=== PATIENT | male | born 2000 | race African-American/Black ===

== ENCOUNTER 2025-01-26 05:37 | Inpatient (IN) | payer BC, OTHER ==
[~2025-01-26] VITALS: Ht 188 cm; Wt 125.2 kg
[2025-01-26 05:40] VITALS: O2SAT 98
[2025-01-26 06:46] LABS: HEMATOCRIT. 43.8 % (42.0-52.0); HEMOGLOBIN. 14.2 g/dL (14.0-18.0); MEAN PLATELET VOLUME 8.3 fl (7.4-10.4); PLATELET 296 x1000/uL (130-400); RED BLOOD CELL COUNT 5.09 mill/uL (4.7-6.1); RED CELL DISTRIBUTION WIDTH 14.1 % (11.6-14.6)
[2025-01-26 06:59] LABS: CREATININE 1.6 mg/dL (0.6-1.3); TROPONIN I HIGH SENSITIVITY 15 ng/L (3.0-53)
[2025-01-26 07:00] LABS: UREA NITROGEN BLOOD 14 mg/dL (9-23)
[2025-01-26 07:01] LABS: ASPARTATE AMINOTRANSFERASE 36 IU/L (<34); BILIRUBIN DIRECT 0.2 mg/dL (<=3.0)
[2025-01-26 07:02] LABS: BILIRUBIN TOTAL 0.6 mg/dL (0.1-1.0); PROTEIN TOTAL 7.6 g/dL (6.0-8.3)
[2025-01-26] MEDS ORDERED: DOCUSATE SODIUM 100MG CAPSULE PO PRN (09:30)
[2025-01-26] MEDS ORDERED: ONDANSETRON HCL 4MG/2ML INJ IV PRN (09:30)
[2025-01-26] MEDS ORDERED: GUAIFENESIN 200MG/10ML SUGAR FREE UDC PO PRN (09:30)
[2025-01-26] MEDS ORDERED: ACETAMINOPHEN 650MG/20.3ML UDC GT PRN (09:30)
[2025-01-26] MEDS ORDERED: IPRATROPIUM/ALBUTEROL 0.5-3(2.5)MG/3ML NEB HHN PRN (09:30)
[2025-01-26] MEDS ORDERED: LORAZEPAM 2MG/ML UD SYRINGE IV PRN (09:45)
[2025-01-26] MEDS ORDERED: DEXTROSE 50% WATER 50ML SYRINGE IV PRN (10:30)
[2025-01-26 10:51] LABS: ETHANOL BLOOD < 10 mg/dL (<10)
[2025-01-26 10:55] LABS: TROPONIN I HIGH SENSITIVITY 136 ng/L (3.0-53)
[2025-01-26] MEDS: FOLIC ACID 1 MG, THIAMINE HCL 100 MG, MVI, ADULT NO.1 10 ML in DEXTROSE 5% WATER 1,000 ML IV ONE (12:40)
[2025-01-26] MEDS: THIAMINE HCL 100MG TABLET PO SCH (12:40)
[2025-01-26] MEDS: DEXT 5%/0.9% NACL 1,000 ML IV SCH (12:40)
[2025-01-26] MEDS: BLOOD SUGAR DIAGNOSTIC STRIP TEST SCH (12:40)
[2025-01-26 13:44] LABS: CLARITY URINE CLEAR (CLEAR); COLOR URINE DARK YELLOW (YELLOW); GLUCOSE URINE NEGATIVE (NEGATIVE); PH URINE 5.5 (4.5-8.0); PROTEIN URINE 2+ (NEGATIVE); SPECIFIC GRAVITY URINE 1.028 (1.005-1.030)
[2025-01-26 13:45] LABS: KETONES URINE 1+ (NEGATIVE); LEUKOCYTE ESTERASE URINE NEGATIVE (NEGATIVE); NITRITE URINE NEGATIVE (NEGATIVE); OCCULT BLOOD URINE NEGATIVE (NEGATIVE); UROBILINOGEN URINE 1.0 E.U./dL (0.2-1.0)
[2025-01-26 13:53] LABS: *AMPHETAMINES SCREEN URINE PRESUMPTIVE POSITIVE (NEGATIVE); *BARBITURATES SCREEN URINE NEGATIVE (NEGATIVE); *BENZODIAZEPINES SCREEN URINE PRESUMPTIVE POSITIVE (NEGATIVE); *COCAINE SCREEN URINE NEGATIVE (NEGATIVE); CANNABINOID URINE SCREEN PRESUMPTIVE POSITIVE (NEGATIVE); METHADONE URINE SCREEN NEGATIVE (NEGATIVE); OPIATES URINE SCREEN NEGATIVE (NEGATIVE); PHENCYCLIDINE URINE SCREEN NEGATIVE (NEGATIVE)
[2025-01-26 13:54] LABS: ECSTASY MDMA SCREEN URINE CONF.TEST INDICATED (NEGATIVE)
[2025-01-26 14:13] LABS: SQUAMOUS EPITHELIAL CELL URINE FEW /lpf (RARE/1+); WBC URINE 0-2 /hpf (0-2)
[2025-01-26 14:14] LABS: BACTERIA URINE NONE SEEN; MUCUS URINE 2+ /lpf (NONE/TRACE); RBC URINE 0-2 /hpf (0-2); YEAST URINE NONE SEEN
[2025-01-26 16:33] LABS: TROPONIN I HIGH SENSITIVITY 261 ng/L (3.0-53)
[2025-01-26 17:11] LABS: BAND% 1.0 % (1.0-6.0); LYMPHOCYTES % MANUAL 4.0 % (20.0-50.0); MONOCYTES % MANUAL 3.0 % (2.0-8.0); NEUTROPHILS % MANUAL 92.0 % (45.0-75.0); PLATELET ESTIMATE NORMAL
[2025-01-26] MEDS: PANTOPRAZOLE SODIUM 40 MG/VIAL IV SCH (18:05)
[2025-01-26 20:00] VITALS: BP 112/58; PULSE 60; RESP 18; TEMP 36.3; O2SAT 98
[2025-01-26] MEDS ORDERED: TRAZ-252 MT (21:34)
[2025-01-26] MEDS: TRAZODONE HCL 50MG TABLET PO SCH (22:00)
[2025-01-27] VITALS (7 sets, daily range): BP systolic 111–133; BP diastolic 58–76; PULSE 51–60; RESP 17–20; TEMP 36.2–36.7; O2SAT 95–98
[2025-01-27 06:46] LABS: CREATININE 0.9 mg/dL (0.6-1.3)
[2025-01-27 06:47] LABS: UREA NITROGEN BLOOD 11 mg/dL (9-23)
[2025-01-27 06:53] LABS: BASOPHILS % 0.4 % (0.0-2.0); EOSINOPHILS % 1.4 % (0.0-5.0); HEMATOCRIT. 39.5 % (42.0-52.0); HEMOGLOBIN. 13.2 g/dL (14.0-18.0); LYMPHOCYTES % 21.4 % (20.0-50.0); MEAN PLATELET VOLUME 8.4 fl (7.4-10.4); MONOCYTES % 5.9 % (2.0-8.0); NEUTROPHILS % 70.9 % (40.0-76.0); PLATELET 230 x1000/uL (130-400); RED BLOOD CELL COUNT 4.64 mill/uL (4.7-6.1); RED CELL DISTRIBUTION WIDTH 13.9 % (11.6-14.6); T4 FREE 1.16 ng/dL (0.89-1.76)
[2025-01-27 08:26] LABS: TROPONIN I HIGH SENSITIVITY 223 ng/L (3.0-53)
[2025-01-27] MEDS: FOLIC ACID 1MG TABLET PO SCH (09:15)
[2025-01-27] MEDS: ACETAMINOPHEN 650MG/20.3ML UDC GT PRN (09:17)
[2025-01-27 09:47] LABS: ASPARTATE AMINOTRANSFERASE 24 IU/L (<34)
[2025-01-27 09:48] LABS: BILIRUBIN DIRECT 0.3 mg/dL (<=3.0); BILIRUBIN TOTAL 1.0 mg/dL (0.1-1.0); PROTEIN TOTAL 6.7 g/dL (6.0-8.3)
[2025-01-27] MEDS: GABAPENTIN 100MG CAPSULE PO SCH (13:40)
[2025-01-27] MEDS ORDERED: DICL50TA9 PO (13:43)
[2025-01-27] MEDS: OLANZAPINE 5MG TABLET PO SCH (21:28)
[2025-01-27] MEDS: DICLOFENAC SODIUM 50 MG PO SCH (21:28)
[2025-01-28] VITALS: BP 116/67; PULSE 53; RESP 17; TEMP 33.9; O2SAT 93
[2025-01-28 04:00] VITALS: BP 103/47; PULSE 53; RESP 17; TEMP 36.7; O2SAT 95
[2025-01-28 08:00] VITALS: BP 145/79; PULSE 63; RESP 18; TEMP 36.2; O2SAT 98
[2025-01-28 08:06] LABS: BASOPHILS % 0.5 % (0.0-2.0); EOSINOPHILS % 2.2 % (0.0-5.0); HEMATOCRIT. 39.4 % (42.0-52.0); HEMOGLOBIN. 13.0 g/dL (14.0-18.0); LYMPHOCYTES % 25.8 % (20.0-50.0); MEAN PLATELET VOLUME 8.5 fl (7.4-10.4); MONOCYTES % 7.5 % (2.0-8.0); NEUTROPHILS % 64.0 % (40.0-76.0); PLATELET 232 x1000/uL (130-400); RED BLOOD CELL COUNT 4.71 mill/uL (4.7-6.1); RED CELL DISTRIBUTION WIDTH 13.7 % (11.6-14.6)
[2025-01-28 08:22] LABS: CREATININE 0.8 mg/dL (0.6-1.3); UREA NITROGEN BLOOD 9 mg/dL (9-23)
[2025-01-28] MEDS: LAMOTRIGINE 25MG TABLET PO SCH (09:04)
[2025-01-28 12:00] VITALS: BP 144/74; PULSE 57; RESP 18; TEMP 35.6; O2SAT 98
[2025-01-28] MEDS ORDERED: THIA100T72 PO (12:52)
[2025-01-28] MEDS ORDERED: FOLI-43 PO (12:52)
[2025-01-28] MEDS ORDERED: DICL50TA9 PO (12:52)
[2025-01-28 14:25] VITALS: BP 144/74; PULSE 57; TEMP 96.1
== END 2025-01-28 15:00 | disposition home or self-care (01) | DRG 918 ==
LOC: ER 05:37 → 8WST 08:25 → EDBEDREQTM 08:36 → EDBEDREQ 08:36 → EDBEDREQSVC 10:52
PROVIDERS: ADMIT Internal Medicine; ATTEND Internal Medicine
PROC: GZ56ZZZ Individual Psychotherapy, Supportive (ICD-10-PCS; principal; 2025-01-27)
DX: T40.2X2A Poisoning by other opioids, intentional self-harm, initial encounter (principal); F25.0 Schizoaffective disorder, bipolar type; N17.9 Acute kidney failure, unspecified; F10.129 Alcohol abuse with intoxication, unspecified; F14.10 Cocaine abuse, uncomplicated; Z59.00 Homelessness unspecified; D72.829 Elevated white blood cell count, unspecified; E86.0 Dehydration; F12.10 Cannabis abuse, uncomplicated; R73.9 Hyperglycemia, unspecified; F17.210 Nicotine dependence, cigarettes, uncomplicated; F41.9 Anxiety disorder, unspecified; G89.29 Other chronic pain
CPT/HCPCS: 36415; 71045; 72131; 80048; 80076; 80305; 80307; 80320; 80329; 81003; 82550; 82962; 83036; 83605; 83735; 84145; 84439; 84443; 84484; 85025; 93005; 99291; J2470; J3411; J3490; J7070; G0480